=== PATIENT | female | born 1955 | race Caucasian/White ===

== ENCOUNTER → 2017-06-19 14:52 | Outpatient (CLI) | payer BC, SELFPAY ==
[2017-06-19 16:06] LABS: Anion Gap 8 (5-15); BUN 13 mg/dL (7-18); BUN/Creat Ratio 14.5 RATIO (10-20); Calcium,Total 8.9 mg/dL (8.5-10.1); Chloride 106 mmol/L (98-107); Cholesterol 247 mg/dL (200); EST Glomerular Filtration Rate 67 mL/min (>60); Est Glom Filt Rate - Afr Amer 82 mL/min (>60); Glucose 95 mg/dL (74-106); High Density Lipoprotein 38 mg/dL; Potassium 3.7 mmol/L (3.5-5.1); Sodium Level 140 mmol/L (136-145); Thyroid Stim Hormone (TSH) 1.58 uIU/mL (0.358-3.74); Triglycerides 377 mg/dL; Very Low Density Lipoprotein 75 mg/dL (5-40)
== END ==
PROVIDERS: Family Provider Family Medicine; PCP Family Medicine; Visit Provider Family Medicine
DX: I10 Essential (primary) hypertension (principal)
CPT/HCPCS: 36415; 80048; 80061; 84443

== ENCOUNTER → 2017-07-16 12:57 | Outpatient (CLI) | payer BC, SELFPAY ==
[2017-07-17 14:36] LABS: HPV Reflexed? NOT INDICATED
== END ==
PROVIDERS: Family Provider Family Medicine; PCP Family Medicine; Visit Provider Family Medicine
DX: Z01.419 Encounter for gynecological examination (general) (routine) without abnormal findings (principal)
CPT/HCPCS: 88175; G0145

== ENCOUNTER → 2017-07-30 07:19 | Outpatient (CLI) | payer BC, SELFPAY ==
--- NOTE | 2017-07-30 07:19 | DT_ITS ---
This patient was seen during an EMR downtime July 29, 2017 - August 05, 2017. This patient may have a combination of paper and electronic documentation or all paper documentation. All documentation is viewable within the e-chart portion of [facility] for each patient visit.
--- NOTE | 2017-07-30 07:20 | CT_ITS ---
STUDY: CT SOFT TISSUE NECK WITH CONTRAST REASON FOR EXAM: Female, 62 years old. Left lateral neck mass. RADIATION DOSAGE (If Supplied By Facility): CTDIvol = ( 22.34 ) mGy, DLP = ( 674.95 ) mGycm TECHNIQUE: The patient was scanned in a multi-detector CT scanner. High resolution transaxial imaging was performed following intravenous administration of 100 ml of Isovue 300 contrast material. Sagittal and coronal images were reconstructed. Individualized dose optimization techniques were used for this CT. COMPARISON: None. FINDINGS: There is 3.5 x 2.4 cm fat density mass superficial to the left submandibular gland in the area marked as the region of interest by the patient. Normal bilateral parotid glands. Normal bilateral associate team physician spaces. Normal bilateral parapharyngeal spaces. Normal bilateral carotid spaces. Normal bilateral sublingual and submandibular glands . Normal visualized nasopharynx. Normal retropharyngeal space. Normal perivertebral space. Normal visualized bilateral faucial tonsils. The visualized tongue, tongue base and oropharynx are normal. The visualized cervical lymph nodes (levels I-) are within normal size limits, and maintain normal morphology. There is no demonstrated cystic mass lesion. There is no abnormal contrast enhancement. Normal epiglottis, bilateral vallecula and hypopharynx. The pre-epiglottic and paraglottic adipose spaces are normal. Normal visualized bilateral piriform sinuses, aryepiglottic folds, vocal cords, and arytenoid-cricoid articulations. Normal subglottic trachea. Normal bilateral lobes of the thyroid gland. Normal visualized pulmonary apices. Normal visualized paranasal sinuses. Mild degenerative changes of the cervical spine. CT/Soft Tissue Neck WITH Contrast IMPRESSION: Fat density mass corresponding to the palpable abnormality consistent with lipoma. Electronically Signed: Zay Hu MD at 11:14 EDT , Service support ,
== END ==
PROVIDERS: Family Provider Family Medicine; PCP Family Medicine; Visit Provider Family Medicine
DX: R22.1 Localized swelling, mass and lump, neck (principal)
CPT/HCPCS: 70491; Q9967

== ENCOUNTER → 2017-08-05 16:11 | Outpatient (CLI) | payer BC, SELFPAY ==
--- NOTE | 2017-08-05 16:11 | DT_ITS ---
This patient was seen during an EMR downtime July 29, 2017 - August 05, 2017. This patient may have a combination of paper and electronic documentation or all paper documentation. All documentation is viewable within the e-chart portion of [employer] [facility] for each patient visit.
--- NOTE | 2017-08-05 16:14 | BI_ITS ---
MAMMOGRAPHY - BILATERAL SCREENING REASON FOR EXAM: Female, 62 years old. Routine annual screening examination. PERTINENT HISTORY: Non-contributory. TECHNIQUE: Digital bilateral breast christiane (3D mammographic acquisition) in the CC and MLO projections. 2-D mediolateral oblique (MLO) and craniocaudad (CC) views of both breasts were obtained. CAD: Full Field Digital Mammography with Computer Added Detection was performed. COMPARISON: Comparison is made with prior study dated October 08, 2011 and October 05, 2010. FINDINGS: Breast Composition: There are scattered areas of fibroglandular density. There are no dominant masses or suspicious calcifications. Stable appearance of the benign appearing bilateral axillary lymph nodes. No other significant abnormalities are identified. There has been no significant change since the prior study. BI/SCREENING MAMM (CAD), BILAT IMPRESSION: Stable bilateral screening mammogram. Yearly follow-up mammogram recommended. (A) ASSESSMENT CATEGORY: BIRADS Category 2: Benign. A letter regarding these results will be sent to the patient by the facility within 30 days. Approximately 10% of breast cancers are not detected by mammography. A normal mammogram should not delay biopsy of a clinically suspicious abnormality. [id number] Electronically Signed: Oneil Red MD at 13:54 EDT Tel [phone], Service support ,
== END ==
PROVIDERS: Family Provider Family Medicine; PCP Family Medicine; Visit Provider Family Medicine
DX: Z12.31 Encounter for screening mammogram for malignant neoplasm of breast (principal)
CPT/HCPCS: 77063; 77067

== ENCOUNTER → 2017-08-13 11:14 | Outpatient (CLI) | payer BC, SELFPAY ==
[2017-08-13 13:15] LABS: AST(SGOT) 11 U/L (15-37); Alanine Aminotransfer ALT/SGPT 24 U/L (13-56); Cholesterol 120 mg/dL (200); High Density Lipoprotein 34 mg/dL; Triglycerides 284 mg/dL; Very Low Density Lipoprotein 57 mg/dL (5-40)
== END ==
PROVIDERS: Family Provider Family Medicine; PCP Family Medicine; Visit Provider Family Medicine
DX: E78.5 Hyperlipidemia, unspecified (principal)
CPT/HCPCS: 36415; 80061; 84450; 84460

== ENCOUNTER → 2017-08-19 16:24 | Outpatient (CLI) | payer BC, SELFPAY ==
--- NOTE | 2017-08-19 12:05 | COLBX_PTH ---
PATIENT: GISEL HOLLIDAY LOC: [facility] U#:[id number] AGE/SX: 69/F ROOM: RE08/19/[address]: Dr. Joselito Retana MD : 1955 BED: DIS: SPEC #: [id number] RECD: 08/19/17 15:31 STATUS: NAHID CHERIE #: [id number] SAUMYA: 08/19/17 12:[address]: Joselito Retana DEPT: SURGICAL PATHOLOGY RECD BY: Jose Carson ENTERED: 08/20/17 10:49 SP TYPE: COLON BX OTHR DR: Dr. Phylicia Kaba MD [facility] Tissues: A - Right colon B - Sigmoid colon biopsy Procedures: Surgery Specimen Level IV HEADER OPERATION: Colonoscopy with biopsy PRE-OP DIAGNOSIS: Screening colonoscopy TISSUE SUBMITTED: A. Polyp biopsy, right colon, rule out adenoma, B. Polyp biopsy, distal sigmoid, rule out adenoma MICROSCOPIC DIAGNOSIS A. Polyp right colon, biopsy: Fragments of tubular adenoma. B. Distal sigmoid polyp, biopsy: Fragments of hyperplastic polyp. SJ:fredy 08/21/17 MICROSCOPIC DESCRIPTION Slides are reviewed. GROSS DESCRIPTION A. Received in fixative is one container labeled with the patient's name and designated right colon polyp biopsy. The specimen consists of multiple fragments of tissue measuring in aggregate 0.6 x 0.2 x 0.2. The specimen is totally submitted in one cassette. B. Received in fixative is one container labeled with the patient's name and designated distal sigmoid polyp biopsy. The specimen consists of two fragments of tissue measuring in aggregate 0.5 x 0.3 x 0.3. The specimen is totally submitted in one cassette. RY:fredy 08/19/17 TC:1 CPT:76023 x2
== END ==
PROVIDERS: Family Provider Family Medicine; PCP Family Medicine; Visit Provider Internal Medicine Gastroenterology
DX: Z12.11 Encounter for screening for malignant neoplasm of colon (principal)
CPT/HCPCS: 88305

== ENCOUNTER → 2018-09-10 | Outpatient (CLI) | payer BC, SELFPAY ==
--- NOTE | 2018-09-10 12:06 | BI_ITS ---
MAMMOGRAPHY - BILATERAL SCREENING REASON FOR EXAM: Female, 63 years old. Routine annual screening examination. PERTINENT HISTORY: Non-contributory. TECHNIQUE: Digital bilateral breast connie (3D mammographic acquisition) in the CC and MLO projections. 2-D mediolateral oblique (MLO) and craniocaudad (CC) views of both breasts were obtained. CAD: Full Field Digital Mammography with Computer Added Detection was performed. COMPARISON: Comparison is made with prior study dated August 05, 2017 and October 08, 2011. FINDINGS: Breast Composition: There are scattered areas of fibroglandular density. There are no dominant masses or suspicious calcifications. No other significant abnormalities are identified. There has been no significant change since the prior study. BI/SCREEN MAMM (CAD) W/CONNIE BILAT IMPRESSION: Stable bilateral screening mammogram. Yearly follow-up mammogram recommended. (A) ASSESSMENT CATEGORY: BIRADS Category 1: Negative. A letter regarding these results will be sent to the patient by the facility within 30 days. Approximately 10% of breast cancers are not detected by mammography. A normal mammogram should not delay biopsy of a clinically suspicious abnormality. [id number] Electronically Signed: Oneil Red, at 14:34 EDT , Service support ,
== END | disposition home or self-care (01) ==
PROVIDERS: Family Provider Family Medicine; PCP Family Medicine; Referring Provider Family Medicine; Visit Provider Family Medicine
DX: Z12.31 Encounter for screening mammogram for malignant neoplasm of breast (principal)
CPT/HCPCS: 77063; 77067

== ENCOUNTER → 2018-10-17 | Outpatient (CLI) | payer BC, SELFPAY ==
[2018-09-26 08:43] VITALS: BMI 40.1
--- NOTE | 2018-10-17 14:06 | CT_ITS ---
STUDY: CT SOFT TISSUE NECK WITH CONTRAST REASON FOR EXAM: Female, 63 years old. Left neck soft tissue mass x one year. RADIATION DOSAGE (If Supplied By Facility): CTDIvol = ( 19.48 ) mGy, DLP = ( 603.23 ) mGycm TECHNIQUE: The patient was scanned in a multi-detector CT scanner. High resolution transaxial imaging was performed following intravenous administration of 75ML IV Isovue 370. Sagittal and coronal images were reconstructed. Individualized dose optimization techniques were used for this CT. COMPARISON: None. FINDINGS: Normal bilateral parotid glands. Normal bilateral forensic locksmith spaces. Normal bilateral parapharyngeal spaces. Normal bilateral carotid spaces. Normal bilateral sublingual and submandibular glands and spaces. Lateral to the left submandibular gland and just below the left parotid gland is a well-defined 3.7 x 2.55 x 3.8 cm fatty area consistent with a lipoma. Normal visualized nasopharynx. Normal retropharyngeal space. Normal perivertebral space. Normal visualized bilateral faucial tonsils. The visualized tongue, tongue base and oropharynx are normal. The visualized cervical lymph nodes (levels I-) are within normal size limits, and maintain normal morphology. There is no demonstrated solid or cystic mass lesion. There is no abnormal contrast enhancement. Normal epiglottis, bilateral vallecula and hypopharynx. The pre-epiglottic and paraglottic adipose spaces are normal. Normal visualized bilateral piriform sinuses, aryepiglottic folds, vocal cords, and arytenoid-cricoid articulations. Normal subglottic trachea. Normal bilateral lobes of the thyroid gland. Normal visualized pulmonary apices. Normal visualized paranasal sinuses. There are degenerative changes of the spine at C5-6 and C6-7. CT/Soft Tissue Neck WITH Contrast IMPRESSION: 1. 3.8 cm lipoma in the left neck lateral to the submandibular gland and just below the left parotid. 2. Degenerative changes of the spine at C5-6 and C6-7. Electronically Signed: Chalino Leroy MD at 15:22 EDT , Service support ,
[2018-10-17 14:46] LABS: CREATININE FINGERSTICK 0.9 mg/dL (0.55-1.02); EGFR FINGERSTICK > 60.0000 mL/min (>60)
== END | disposition home or self-care (01) ==
PROVIDERS: Family Provider Family Medicine; PCP Family Medicine; Referring Provider Surgery; Visit Provider Surgery
DX: R22.1 Localized swelling, mass and lump, neck (principal)
CPT/HCPCS: 70491; Q9967

== ENCOUNTER → 2019-01-26 14:56 | Outpatient (CLI) | payer BC, SELFPAY ==
[2018-09-26 08:43] VITALS: BMI 40.1
[2019-01-26 18:20] LABS: Anion Gap 7 (5-15); BUN 15 mg/dL (7-18); BUN/Creat Ratio 19.5 RATIO (10-20); Chloride 105 mmol/L (98-107); Creatinine, Serum 0.77 mg/dL (0.55-1.02); EST Glomerular Filtration Rate 80 mL/min (>60); Est Glom Filt Rate - Afr Amer 97 mL/min (>60); Glucose 97 mg/dL (74-106); Potassium 3.9 mmol/L (3.5-5.1); Sodium Level 138 mmol/L (136-145)
== END ==
PROVIDERS: Family Provider Family Medicine; PCP Family Medicine; Referring Provider Family Medicine; Visit Provider Family Medicine
DX: I10 Essential (primary) hypertension (principal)
CPT/HCPCS: 36415; 80048

== ENCOUNTER 2019-01-27 05:56 | Day surgery (SDC) | payer BC, SELFPAY ==
[2018-09-26 08:43] VITALS: BMI 40.1
--- NOTE | 2019-01-26 18:22 | HP.PCM_ITS ---
History and Physical Date of Admission: 01/27/19 HISTORY OF PRESENT ILLNESS 63 year old woman presents with an enlarging soft tissue mass left lateral neck. She denies any pain. She denies any fever. She denies any trauma. She noticed it about a year ago and a CT was done in 08/12 which showed a fat density mass consistent with lipoma. It measured at 3.5 cm. She states it has enlarged since then. Repeat CT scan done 10/17/18 showed 1. 3.8 cm lipoma in the left neck lateral to the submandibular gland and just below the left parotid. She presents at this time for further evaluation and treatment. PAST MEDICAL HISTORY Bone fracture (Acute) GERD (gastroesophageal reflux disease) (Acute) High cholesterol (Acute) Seasonal allergies (Acute) UTI (urinary tract infection) (Acute) High blood pressure (Chronic) PAST SURGICAL HISTORY None ALLERGIES ciprofloxacin [From Cipro] Allergy (Intermediate, Verified 09/26/18 08:44) Hives MEDICATIONS Lactobac 51-Bifidobac 3-L.lactis-S.thermophilus 4 billion cell capsule cap PO cap 08/19/18 [History Confirmed 08/19/18] aspirin 81 mg chewable tablet 81 mg PO DAILY 08/19/18 [History Confirmed 08/19/18] atorvastatin 20 mg tablet 20 mg PO DAILY 08/19/18 [History Confirmed 08/19/18] esomeprazole magnesium 20 mg capsule,delayed release 20 mg PO DAILY 08/19/18 [History Confirmed 08/19/18] flaxseed oil 450 ml MISCELLANEOUS ONCE ml 08/19/18 [History] loratadine 10 mg tablet 10 mg PO DAILY 08/19/18 [History Confirmed 08/19/18] metoprolol succinate ER 50 mg capsule sprinkle, ext. release 24 hr 50 mg PO DAILY 08/19/18 [History Confirmed 08/19/18] potassium 99 mg tablet 99 mg PO DAILY 08/19/18 [History Confirmed 08/19/18] triamcinolone acetonide 55 mcg nasal spray aerosol 2 spray INTRANASAL DAILY 08/19/18 [History Confirmed 08/19/18] FAMILY HISTORY Other High cholesterol Hypertension SOCIAL HISTORY Smoking Status: Never smoker alcohol intake: current substance use type: does not use REVIEW OF SYSTEMS General - Denies fever, fatigue, and weight loss. Eyes - Denies cataracts and glaucoma. ENT - Denies nasal congestion and sore throat. Endocrine - Denies excessive thirst and urination. Skin - Denies skin cancer. Has enlarging soft tissue mass left lateral neck consistent with lipoma. Musculoskeletal - Denies joint pain, joint stiffness, weakness of muscles and joints, back pain, and arthritis. Neuro - Has headaches. Cardiovascular - Denies chest pain, fatigue, and shortness of breath with exertion. Psych - Denies anxiety and depression. Respiratory - Denies chronic cough and shortness of breath. Gastrointestinal - Denies nausea, vomiting, diarrhea, and constipation. Hematologic - Denies abnormal bruising and bleeding. Genitourinary - Denies hematuria. Has urinary frequency. PHYSICAL EXAMINATION General - Alert and Oriented. HEENT - PERRL. EOMI. Throat is clear. Patient can smile symmetrically. She can close her eyes symmetrically. She can blow symmetrically. She can elevate her eyebrows symmetrically. No suspicious lesions noted. Neck - Supple and nontender. No cervical adenopathy. In the left lateral neck is a soft tissue mass. It is mobile. It does not extend onto the cheek. It is inferior to the earlobe. Mass measures 6 cm. No skin dimpling. No skin retraction. No evidence of infection. No other suspicious lesions noted. Lungs - Clear to auscultation. Heart - Regular rate and rhythm. Abdomen - Soft and nondistended. Extremities - FROM. No axillary adenopathy. Radial pulses are palpable. No suspicious lesions noted. Neuro - CN II-XII grossly intact. Psych - Normal mood and affect. ASSESSMENT 6 cm soft tissue mass left lateral neck. PLAN CT from 08/12 was reviewed. It showed a fat density mass consistent with lipoma. It doesn't appear to be involved with the parotid gland. It is located superficial to the submandibular gland. Recommend excision of this soft tissue mass left lateral neck. Since the mass is gotten bigger since then and it has been over a year, the CT was repeated on 10/17/18 and showed 1. 3.8 cm lipoma in the left neck lateral to the submandibular gland and just below the left parotid. Discussed with the patient that even though the CT does not show involvement of the parotid gland, it is still located close to it. Based on the previous CT scan findings, do not need ENT evaluation at this time. However at the time of surgery, if there happens to be involvement of the parotid gland, then superficial parotidectomy would be needed. Would then need evaluation by ENT for a parotidectomy which would be done separately. Patient voices understanding. Surgery will be done on an outpatient basis under general anesthesia. Would send tissue to Pathology for analysis to rule out carcinoma. Depending on the size of the cavity after excision, a drain may be necessary postop for 7-10 days. Would be maintained on antibiotics until the drain is removed. Will schedule the surgery after the CT is done. Patient was informed of the risks and complications of the procedure including alternatives to surgery. These were discussed with the patient personally. Patient voices understanding and wishes to proceed. Some of the risks and complications were included in a form from the [employer].
[2019-01-27 06:31] VITALS: BP 153/88; PULSE 92; RESP 16; TEMP 36.8; O2SAT 97; BMI 40.6
[2019-01-27] MEDS: Lactated Ringers 1,000 ML 100 ML IV (06:52)
--- NOTE | 2019-01-27 07:30 | MASS_PTH ---
PATIENT: GISEL HOLLIDAY LOC: [facility] [place] U#:[id number] AGE/SX: 63/F ROOM: RE01/27/[address]: Dr. Dionicio Brown MD : 1955 BED: DIS: 01/27/2019 SPEC #: [id number] RECD: 01/27/19 11:53 STATUS: NAHID REKimberlee #: [id number] SAUMYA: 01/27/19 07:[address]: Dionicio Brown DEPT: SURGICAL PATHOLOGY RECD BY: Jose Carson ENTERED: 01/27/19 13:11 SP TYPE: Mass OTHR DR: Dr. Phylicia Kaba MD Tissues: Neck, NOS Procedures: Surgery Specimen Level III HEADER OPERATION: Excision soft tissue mass lateral neck PRE-OP DIAGNOSIS: 6 cm soft tissue mass left lateral neck TISSUE SUBMITTED: Soft tissue mass left lateral neck MICROSCOPIC DIAGNOSIS Soft tissue mass, left lateral neck, excision: Mature adipose tissue consistent with lipoma. AM:osman 01/28/19 MICROSCOPIC DESCRIPTION Slides are reviewed. GROSS DESCRIPTION Received in fixative is one container labeled with the patient's name and designated soft tissue mass left lateral neck. The specimen consists of multiple irregular fragments of yellow fatty tissue that in aggregate measure 7 x 5 x 2 cm. Sections reveal homogenous yellow cut surfaces without areas of cyst formation, necrosis or myxoid change. Pediatric Psychologist sections are submitted in two cassettes. / SJ:osman 01/27/19 TC:1 CPT: 41829
[2019-01-27] MEDS: Mupirocin Ointment 22gm Tube 1 APPLIC (08:05)
--- NOTE | 2019-01-27 08:36 | PCM.OPRPT ---
Report of Operation Date of Procedure: 01/27/19 Pre-Operative Diagnosis: 6 cm soft tissue mass left lateral neck. Post-Operative Diagnosis: 6 cm submuscular soft tissue mass lipoma left lateral neck. Surgery/Procedure Performed:: Excision 6 cm submuscular soft tissue mass lipoma left lateral neck with 6 cm complex closure. Description of Surgical Findings:: 63 year old woman presents with an enlarging soft tissue mass left lateral neck. She denies any pain. She denies any fever. She denies any trauma. She noticed it about a year ago and a CT was done in 08/12 which showed a fat density mass consistent with lipoma. It measured at 3.5 cm. She states it has enlarged since then. Repeat CT scan done 10/17/18 showed 1. 3.8 cm lipoma in the left neck lateral to the submandibular gland and just below the left parotid. Patient was informed of the risks and complications of the procedure including alternatives to surgery. These were discussed with the patient personally. Patient voices understanding and wishes to proceed. Some of the risks and complications were included in a form from the [employer]. I used Pamela absorbable hemostat. Reference Number - [id number]. Lot Number - [id number]. Expiration - October 23, 2023. build engineer: None Type of Anesthesia:: General Specimen's removed: Submuscular soft tissue mass left lateral neck to Pathology. Drains: None. Estimated Blood Loss (mL): 20 ml. Description of Procedure: Patient was taken to OR in supine position and was placed under general anesthesia. The left neck was prepped and draped in the usual fashion. SCD's were placed for DVT prophylaxis. Perioperative antibiotics were given intravenously. I mega a line over the mass on the left lateral neck. Using xylocaine with epinephrine, the marking was infiltrated. After waiting 5 minutes for the anesthetic to take effect, an incision was made into the subcutaneous tissue. The platysma muscle was seen. The soft tissue mass was located beneath the platysma muscle in a submuscular location. The muscle was off the mass. The mass was clinically consistent with a lipoma which is what the CT stated. I dissected the mass close to the submandibular gland anteriorly and the tail of the parotid gland posteriorly. The mass was well encapsulated without adherence to these structures and without adherence to the mandible. The soft tissue mass was sent to Pathology for analysis to rule out carcinoma. The wound was irrigated with saline. Hemostasis was obtained with electrocautery. I then sprayed Pamela absorbable hemostat into the wound to minimize seroma formation. The wound was then closed in a multiple layered complex closure with 4-0 Monocryl figure of eight interrupted sutures for the platysma muscle. The deep dermis and subcutaneous tissue was approximated with 4-0 Monocryl interrupted sutures. The skin was approximated with 4-0 Prolene simple interrupted sutures. Antibiotic ointment was applied to the incision followed by a compression gauze dressing. The length of the complex closure repair was 6 cm. Patient tolerated the procedure well and was sent to PACU in satisfactory condition. Patient will be sent home on antibiotics and pain medication. Patient will followup in a week for a wound check and for discussion of the pathology report and for removal of the sutures. Grafts/Implants Used: None. - Complications None. - Admit VTE Documentation VTE Present on Admission: No VTE Mechan Device Prophylaxis: SCD's VTE Pharm Prophylaxis ordered?: No Code Visit Surgery Charges CPT - 59201 ICD-10 - R22.1, D17.0 37088 R22.1, D17.0
[2019-01-27 08:44] VITALS: BP 144/81; BP 153/88; PULSE 82; RESP 16; TEMP 36.8; O2SAT 96
--- NOTE | 2019-01-27 08:51 | PCM.DC ---
You will use the following diet at home:: No restrictions Discharge Activity: May not drive while taking narcotic pain medications., May Shower - in two days., - - keep head elevated. no heavy lifting. May shower in (days): 2 May resume sexual activity in: 10-14 days Ice area for (Minutes): 5 - as needed for swelling. Weight Bearing Status: Weight bearing as tolerated Lifting Restrictions: 10 lbs. Keep extremity elevated above heart level: - - elevate head. Call your doctor if your incision/area has: Continuous Slow Oozing, Sudden Increased Bleeding, Increased Pain/ Swelling, Increased Redness, Foul Smelling Discharge, Swelling at the incision site Call your doctor if you observe: Fever of 101 or Higher, Coldness, Increased Pain, Shortness of breath, Chest pain, Calf discomfort, Uncontrolled pain Suture Line Care: - - apply antibiotic ointment to suture line daily after operative dressing removed in two days. Change Dressing in (Days):: 2 - may remove dressing in two days when showering. Cleanse incision/area with: - - may get incision wet in the shower in two days. Allergies/Adverse Reactions: Allergies ciprofloxacin [From Cipro] Allergy (Intermediate, Verified 01/21/19 13:04) Hives Medications to take at Discharge Lactobac 51-Bifidobac 3-L.lactis-S.thermophilus 4 billion cell capsule 1 cap PO DAILY cap 08/19/18 atorvastatin 20 mg tablet 20 mg PO DAILY 08/19/18 esomeprazole magnesium 20 mg capsule,delayed release 20 mg PO DAILY 08/19/18 flaxseed oil 450 ml MISCELLANEOUS ONCE ml 08/19/18 loratadine 10 mg tablet 10 mg PO DAILY 08/19/18 metoprolol succinate ER 50 mg capsule sprinkle, ext. release 24 hr 50 mg PO DAILY 08/19/18 potassium 99 mg tablet 99 mg PO DAILY 08/19/18 triamcinolone acetonide 55 mcg nasal spray aerosol 2 spray INTRANASAL DAILY 08/19/18 Hydrochlorothiazide 12.5 mg PO DAILY 01/21/19 Clindamycin HCl [Cleocin] 300 mg PO TID #12 cap 01/27/19 Diazepam [Valium] 5 mg PO BID PRN PRN #10 tablet 01/27/19 Lactobacillus Acidophilus/Fos [Acidophilus Probiotic Tablet] 1 ea PO BID #10 tab 01/27/19 Oxycodone HCl/Acetaminophen [Percocet 5/325] 1 tablet PO Q6H PRN PRN 5 Days #20 tablet 01/27/19 The following prescriptions were given: Lactobacillus Acidophilus/Fos [Acidophilus Probiotic Tablet] 1 ea PO BID #10 tab Transmission Status: Pending to [id number] Clindamycin HCl [Cleocin] 300 mg PO TID #12 cap Transmission Status: Pending to [facility] Oxycodone HCl/Acetaminophen [Percocet 5/325] 1 tablet PO Q6H PRN PRN 5 Days #20 tablet PRN Reason: Pain Score 4-5/10 Transmission Status: Received by [id number] Diazepam [Valium] 5 mg PO BID PRN PRN #10 tablet PRN Reason: Spasms Transmission Status: Sent to [id number] Primary Care Physician: Phylicia Kaba MD [Primary Care Provider] - Test Results: Test results from this visit will be discussed in further detail at your follow-up appointment, if applicable. Please Follow Up With: Dionicio Brown MD When: one week. call [phone] for appt. Proposed Discharge Date: 01/27/19
[2019-01-27 08:59] VITALS: BP 137/79; BP 153/88; PULSE 82; RESP 14; O2SAT 99
[2019-01-27 09:08] VITALS: BP 139/67; BP 153/88; PULSE 87; RESP 16; TEMP 36.2; O2SAT 98
[2019-01-27 09:58] VITALS: BP 150/82; BP 153/88; PULSE 64; RESP 16; TEMP 36.3; O2SAT 98
== END 2019-01-27 10:07 | disposition home or self-care (01) ==
LOC: SDC 06:00 → AC 06:00
PROVIDERS: Family Provider Family Medicine; PCP Family Medicine; Referring Provider Surgery; Visit Provider Surgery
PROC: (CPT 13132; principal; 2019-01-27 07:15)
DX: R22.1 Localized swelling, mass and lump, neck (principal); K21.9 Gastro-esophageal reflux disease without esophagitis; E78.00 Pure hypercholesterolemia, unspecified; I10 Essential (primary) hypertension; Z87.440 Personal history of urinary (tract) infections; Z79.82 Long term (current) use of aspirin; Z79.899 Other long term (current) drug therapy
CPT/HCPCS: 00300; 13132; 21554; 88304; 88305; J7120

== ENCOUNTER → 2019-07-27 | Outpatient (CLI) | payer BC, SELFPAY ==
[2019-02-04 14:18] VITALS: BMI 40.6
[2019-07-27 17:56] LABS: AST(SGOT) 23 U/L (15-37); Alanine Aminotransfer ALT/SGPT 40 U/L (13-56); Anion Gap 8 (5-15); BUN 13 mg/dL (7-18); BUN/Creat Ratio 16.4 RATIO (10-20); Calcium,Total 8.8 mg/dL (8.5-10.1); Chloride 104 mmol/L (98-107); Cholesterol 170 mg/dL (200); Creatinine, Serum 0.79 mg/dL (0.55-1.02); EST Glomerular Filtration Rate 77 mL/min (>60); Est Glom Filt Rate - Afr Amer 94 mL/min (>60); Glucose 101 mg/dL (74-106); High Density Lipoprotein 37 mg/dL; Potassium 3.8 mmol/L (3.5-5.1); Sodium Level 138 mmol/L (136-145); Triglycerides 330 mg/dL; Very Low Density Lipoprotein 66 mg/dL (5-40)
== END | disposition home or self-care (01) ==
LOC: MFPLAB 14:02
PROVIDERS: PCP Family Medicine; Referring Provider Family Medicine; Visit Provider Family Medicine
DX: I10 Essential (primary) hypertension (principal); E78.5 Hyperlipidemia, unspecified
CPT/HCPCS: 36415; 80048; 80061; 84450; 84460

== ENCOUNTER → 2020-01-26 14:42 | Outpatient (CLI) | payer BC, SELFPAY ==
[2019-02-04 14:18] VITALS: BMI 40.6
[2020-01-26 18:46] LABS: AST(SGOT) 21 U/L (15-37); Alanine Aminotransfer ALT/SGPT 42 U/L (13-56); Anion Gap 7 (5-15); BUN 12 mg/dL (7-18); BUN/Creat Ratio 17.2 RATIO (10-20); Calcium,Total 8.8 mg/dL (8.5-10.1); Chloride 105 mmol/L (98-107); Cholesterol 137 mg/dL (200); EST Glomerular Filtration Rate 90 mL/min (>60); Est Glom Filt Rate - Afr Amer 108 mL/min (>60); Glucose 122 mg/dL (74-106); High Density Lipoprotein 38 mg/dL; Potassium 3.4 mmol/L (3.5-5.1); Sodium Level 138 mmol/L (136-145); Triglycerides 319 mg/dL; Very Low Density Lipoprotein 64 mg/dL (5-40)
== END ==
PROVIDERS: PCP Family Medicine; Referring Provider Family Medicine; Visit Provider Family Medicine
DX: I10 Essential (primary) hypertension (principal); E78.5 Hyperlipidemia, unspecified
CPT/HCPCS: 36415; 80048; 80061; 84450; 84460

== ENCOUNTER → 2020-03-01 13:09 | Outpatient (CLI) | payer BC, SELFPAY ==
[2019-02-04 14:18] VITALS: BMI 40.6
--- NOTE | 2020-03-01 13:11 | BI_ITS ---
MAMMOGRAPHY - BILATERAL SCREENING REASON FOR EXAM: Female, 64 years old. Routine annual screening examination. PERTINENT HISTORY: Non-contributory. TECHNIQUE: Digital bilateral breast connie (3D mammographic acquisition) in the CC and MLO projections. 2-D mediolateral oblique (MLO) and craniocaudad (CC) views of both breasts were obtained. CAD: Full Field Digital Mammography with Computer Added Detection was performed. COMPARISON: Comparison is made with prior examination dated 09/10/2018 and 08/05/2017. FINDINGS: Breast Composition: There are scattered areas of fibroglandular density. There are no dominant masses or suspicious calcifications. Stable benign-appearing bilateral axillary lymph nodes. No other significant abnormalities are identified. There has been no significant change since the prior study. BI/SCREEN MAMM (CAD) W/CONNIE BILAT IMPRESSION: Stable bilateral screening mammogram. Yearly follow-up mammogram recommended. (A) ASSESSMENT CATEGORY: BIRADS Category 2: Benign. A letter regarding these results will be sent to the patient by the facility within 30 days. Approximately 10% of breast cancers are not detected by mammography. A normal mammogram should not delay biopsy of a clinically suspicious abnormality. [id number] Electronically Signed: Oneil Red, at 14:28 EST , Service support ,
--- NOTE | 2020-03-01 13:20 | BD_ITS ---
STUDY: DUAL ENERGY X-RAY ABSORPTIOMETRY / DXA REASON FOR EXAM: Female, 64 years old. 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 COMPARISON: Comparison is made with prior study dated 02/20/2007. FINDINGS: Lumbar Spine (L1-L4): g/cm2 (1.439) / T-score (2.2) / Z-score (3.8) Findings are suggestive of normal bone density with a low fracture risk. Left Femur Total: g/cm2 (1.058) / T-score (0.4) / Z-score (1.6) Left Femoral Neck: g/cm2 (0.923) / T-score (-0.8) / Z-score (0.7) Right Femur Total: g/cm2 (1.053) / T-score (0.4) / Z-score (1.6) Right Femoral Neck: g/cm2 (0.976) / T-score (-0.4) / Z-score (1.0) The T-Scores on the most recent prior examination were: Lumbar Spine (L1-L4): There has been improvement of bone density since the previous examination. Left Femur Total: which represents an improvement of 13.4%. BD/Dexa Bone Density Study IMPRESSION: The patient is considered normal as outlined below according to World [employer] Organization (WHO) criteria with a low fracture risk. There has been improvement of bone density since the previous examination. Reference Information: The T-score is the number of standard deviations above or below the standard which is normal for young adults at their peak bone mineral density. The World Health Organization (WHO) interprets the T-scores as follows: Above -1 Normal bone density Between -1 and -2.5 Osteopenia Equal to / or below -2.5 Osteoporosis As a practical clinical guideline, osteopenia may be graded as follows: Mild -1 through -1.5 Moderate -1.6 through -2.0 Severe -2.1 through -2.4 The Z-score is the number of standard deviations above or below age-matched controls. A Z-score of less than -1.5 would be considered abnormal. References: 1. NIH Osteoporosis and Related Bone Diseases www osteo.org 2. International Society for Clinical Densitometry www iscd.org 3. National Osteoporosis Foundation www nof.org Electronically Signed: Oneil Red, at 15:13 EST , Service support ,
== END ==
PROVIDERS: PCP Family Medicine; Referring Provider Family Medicine; Visit Provider Family Medicine
DX: N95.9 Unspecified menopausal and perimenopausal disorder (principal); Z12.31 Encounter for screening mammogram for malignant neoplasm of breast
CPT/HCPCS: 77063; 77067; 77080

== ENCOUNTER → 2020-07-27 14:21 | Outpatient (CLI) | payer BC, SELFPAY ==
[2019-02-04 14:18] VITALS: BMI 40.6
[2020-07-27 17:55] LABS: Anion Gap 7 (5-15); BUN 15 mg/dL (7-18); BUN/Creat Ratio 21.4 RATIO (10-20); Calcium,Total 9.3 mg/dL (8.5-10.1); Chloride 104 mmol/L (98-107); EST Glomerular Filtration Rate 89 mL/min (>60); Est Glom Filt Rate - Afr Amer 107 mL/min (>60); Glucose 103 mg/dL (74-106); Potassium 3.8 mmol/L (3.5-5.1); Sodium Level 138 mmol/L (136-145)
== END ==
PROVIDERS: PCP Family Medicine; Referring Provider Family Medicine; Visit Provider Family Medicine
DX: I10 Essential (primary) hypertension (principal)
CPT/HCPCS: 36415; 80048

== ENCOUNTER → 2020-11-14 | Outpatient (CLI) | payer BC, SELFPAY | END | disposition home or self-care (01) | LOC: LABSPEC 13:56 | PROVIDERS: PCP Family Medicine; Visit Provider Family Medicine | DX: L03.90 Cellulitis, unspecified (principal); L02.91 Cutaneous abscess, unspecified | CPT/HCPCS: 87070; 87075; 87077; 87186; 87205 ==

== ENCOUNTER → 2021-02-06 14:47 | Outpatient (CLI) | payer BC, SELFPAY ==
[2021-02-06 18:27] LABS: AST(SGOT) 22 U/L (15-37); Alanine Aminotransfer ALT/SGPT 38 U/L (13-56); Anion Gap 8 (5-15); BUN 18 mg/dL (7-18); BUN/Creat Ratio 28.2 RATIO (10-20); Calcium,Total 9.2 mg/dL (8.5-10.1); Chloride 104 mmol/L (98-107); Cholesterol 159 mg/dL (200); Creatinine, Serum 0.64 mg/dL (0.55-1.02); EST Glomerular Filtration Rate 99 mL/min (>60); Est Glom Filt Rate - Afr Amer 119 mL/min (>60); Glucose 94 mg/dL (74-106); High Density Lipoprotein 46 mg/dL; Potassium 3.8 mmol/L (3.5-5.1); Sodium Level 139 mmol/L (136-145); Triglycerides 267 mg/dL; Very Low Density Lipoprotein 53 mg/dL (5-40)
== END ==
PROVIDERS: PCP Family Medicine; Visit Provider Family Medicine
DX: I10 Essential (primary) hypertension (principal); E78.5 Hyperlipidemia, unspecified
CPT/HCPCS: 36415; 80048; 80061; 84450; 84460

== ENCOUNTER → 2022-03-27 | Outpatient (CLI) | payer BC, SELFPAY ==
--- NOTE | 2022-03-27 13:10 | BI_ITS ---
MAMMOGRAPHY - BILATERAL SCREENING REASON FOR EXAM: Female, 66 years old. Routine annual screening examination. PERTINENT HISTORY: Non-contributory. TECHNIQUE: Digital bilateral breast connie (3D mammographic acquisition) in the CC and MLO projections. 2-D mediolateral oblique (MLO) and craniocaudad (CC) views of both breasts were obtained. CAD: Full Field Digital Mammography with Computer Added Detection was performed. COMPARISON: Comparison is made with prior examination dated 03/01/2020 and 09/10/2018. FINDINGS: Breast Composition: There are scattered areas of fibroglandular density. There are no dominant masses or suspicious calcifications. Stable benign-appearing bilateral axillary lymph nodes. No other significant abnormalities are identified. There has been no significant change since the prior study. BI/SCRN MAMM (CAD)W/CONNIE BILAT IMPRESSION: Stable bilateral screening mammogram. Yearly follow-up mammogram recommended. (A) ASSESSMENT CATEGORY: BIRADS Category 2: Benign. A letter regarding these results will be sent to the patient by the facility within 30 days. Approximately 10% of breast cancers are not detected by mammography. A normal mammogram should not delay biopsy of a clinically suspicious abnormality. [id number] Electronically Signed: Oneil Red MD at 14:18 EST ,
== END | disposition home or self-care (01) ==
LOC: OPBI 13:08
PROVIDERS: PCP Family Medicine; Referring Provider Family Medicine; Visit Provider Family Medicine
DX: Z12.31 Encounter for screening mammogram for malignant neoplasm of breast (principal)
CPT/HCPCS: 77063; 77067

== ENCOUNTER → 2022-10-01 | Outpatient (CLI) | payer BC, SELFPAY ==
[2022-10-01 18:33] LABS: AST(SGOT) 16 U/L (15-37); Alanine Aminotransfer ALT/SGPT 32 U/L (13-56); Anion Gap 4 (5-15); BUN 12 mg/dL (7-18); BUN/Creat Ratio 18.7 RATIO (10-20); Calcium,Total 9.3 mg/dL (8.5-10.1); Chloride 106 mmol/L (98-107); Cholesterol 158 mg/dL (200); Creatinine, Serum 0.64 mg/dL (0.55-1.02); EST Glomerular Filtration Rate 97 mL/min (>60); Est Glom Filt Rate - Afr Amer 118 mL/min (>60); Glucose 99 mg/dL (74-106); High Density Lipoprotein 47 mg/dL; Potassium 3.9 mmol/L (3.5-5.1); Sodium Level 138 mmol/L (136-145); Triglycerides 312 mg/dL; Very Low Density Lipoprotein 62 mg/dL (5-40)
== END | disposition home or self-care (01) ==
LOC: MFPLAB 13:51
PROVIDERS: PCP Family Medicine; Visit Provider Family Medicine
DX: E78.5 Hyperlipidemia, unspecified (principal); I10 Essential (primary) hypertension
CPT/HCPCS: 36415; 80048; 80061; 84450; 84460

== ENCOUNTER → 2023-03-28 | Outpatient (CLI) | payer BC, SELFPAY ==
--- NOTE | 2023-03-28 10:02 | BI_ITS ---
MAMMOGRAPHY - BILATERAL SCREENING REASON FOR EXAM: Female, 67 years old. Routine annual screening examination. PERTINENT HISTORY: Non-contributory. TECHNIQUE: Digital bilateral breast connie (3D mammographic acquisition) in the CC and MLO projections. 2-D mediolateral oblique (MLO) and craniocaudad (CC) views of both breasts were obtained. CAD: Full Field Digital Mammography with Computer Added Detection was performed. COMPARISON: Comparison is made with prior study dated March 27, 2022 and March 01, 2020. FINDINGS: Breast Composition: There are scattered areas of fibroglandular density. There are no dominant masses or suspicious calcifications. Stable benign-appearing bilateral axillary lymph nodes. No other significant abnormalities are identified. There has been no significant change since the prior study. BI/SCRN MAMM (CAD)W/CONNIE BILAT IMPRESSION: Stable bilateral screening mammogram. Yearly follow-up mammogram recommended. (A) ASSESSMENT CATEGORY: BIRADS Category 2: Benign. A letter regarding these results will be sent to the patient by the facility within 30 days. Approximately 10% of breast cancers are not detected by mammography. A normal mammogram should not delay biopsy of a clinically suspicious abnormality. [id number] Electronically Signed: Oneil Red MD at 11:08 EST ,
== END | disposition home or self-care (01) ==
LOC: OPBI 09:58
PROVIDERS: PCP Family Medicine; Referring Provider Family Medicine; Visit Provider Family Medicine
DX: Z12.31 Encounter for screening mammogram for malignant neoplasm of breast (principal)
CPT/HCPCS: 77063; 77067

== ENCOUNTER → 2023-09-30 | Outpatient (CLI) | payer BC, SELFPAY ==
[2023-09-30 18:07] LABS: Protein, Urine (Random) 11.9 mg/dL (<11.9); Protein:Creat Ratio 97 mg/g CRE (0-200)
[2023-09-30 18:11] LABS: AST(SGOT) 28 U/L (15-37); Alanine Aminotransfer ALT/SGPT 36 U/L (13-56); Anion Gap 6 (5-15); BUN 13 mg/dL (7-18); Calcium,Total 9.6 mg/dL (8.5-10.1); Chloride 105 mmol/L (98-107); Cholesterol 152 mg/dL (200); Creatinine, Serum 0.72 mg/dL (0.55-1.02); EST Glomerular Filtration Rate 85 mL/min (>60); Est Glom Filt Rate - Afr Amer 103 mL/min (>60); Glucose 92 mg/dL (74-106); High Density Lipoprotein 45 mg/dL; Potassium 4.3 mmol/L (3.5-5.1); Sodium Level 137 mmol/L (136-145); Thyroid Stim Hormone (TSH) 1.28 uIU/mL (0.358-3.74); Triglycerides 235 mg/dL; Very Low Density Lipoprotein 47 mg/dL (5-40)
== END | disposition home or self-care (01) ==
LOC: MFPLAB 14:02
PROVIDERS: PCP Family Medicine; Visit Provider Family Medicine
DX: E78.5 Hyperlipidemia, unspecified (principal); E66.01 Morbid (severe) obesity due to excess calories; I10 Essential (primary) hypertension
CPT/HCPCS: 80048; 80061; 82570; 84156; 84443; 84450; 84460

== ENCOUNTER → 2024-05-05 | Outpatient (CLI) | payer BC, SELFPAY ==
--- NOTE | 2024-05-05 16:00 | BD_ITS ---
PROCEDURE: DEXA BONE DENSITY STUDY REASON FOR EXAM: None provided TECHNIQUE: DEXA scan of the lumbar spine and hip(s). COMPARISON: 03/01/2020 FINDINGS: LUMBAR SPINE: Bone mineral denisty, L3-L4: 1.229 g/cm???,, probably elevated by hypertrophic bony degenerative changes. T-score: 1.2 LEFT FEMORAL NECK: Bone mineral denisty: 0.638 g/cm??? T-score: -1.9 LEFT TOTAL HIP: Bone mineral denisty: 0.978 g/cm??? T-score: 0.3 RIGHT FEMORAL NECK: Bone mineral denisty: 0.767 g/cm??? T-score: -0.7 RIGHT TOTAL HIP: Bone mineral denisty: 0.942 g/cm??? T-score: 0.0 FRAX*: 10 Year Probability of Fracture: Major Osteoporotic Fracture(1): 15.0% Hip Fracture(2): 2.3% *FRAX is a trademark of the [employer]'s [place] for Metabolic Bone Disease, World Health Organization (WHO) Collaborating [place]. 1-Major Osteoporotic Fracture: Clinical Spine, Forearm, Hip or Shoulder. 2-The 10-year probability of fracture may be lower than reported if the patient has received treatment. BD/Dexa Bone Density Study IMPRESSION: 1. Osteopenia. 2. Since 03/01/2020 there has been a decrease of 0.059 g/cm??? (4.6%) in the h[place] mineral density of the lumbar spine. 3. Additional description as above. Reading Location: [id number]
--- NOTE | 2024-05-05 16:00 | BI_ITS ---
PROCEDURE: SCREENING MAMM (CAD), BILAT REASON FOR EXAM: F, Age 69 y/o, presents for annual screening mammogram. No family history of breast cancer. TECHNIQUE: Bilateral screening digital breast tomosynthesis with 2D and 3D images. Computer aided detection. COMPARISON: 03/28/2023, 03/27/2022 FINDINGS: There are scattered areas of fibroglandular density. No suspicious masses, areas of developing architectural distortion, or suspicious calcifications. BI/SCREENING MAMM (CAD), BILAT IMPRESSION: There is no mammographic evidence of malignancy. BI-RADS 1: NEGATIVE. RECOMMEND ANNUAL MAMMOGRAPHIC SCREENING. Follow-up code: Routine Follow-up The patient will be notified of the results by letter. Reading Location: [id number]
== END | disposition home or self-care (01) ==
LOC: OPBD 15:50
PROVIDERS: PCP Family Medicine; Referring Provider Nurse Practitioner Family; Visit Provider Nurse Practitioner Family
DX: Z12.31 Encounter for screening mammogram for malignant neoplasm of breast (principal); Z13.820 Encounter for screening for osteoporosis; M81.0 Age-related osteoporosis without current pathological fracture
CPT/HCPCS: 77067; 77080

== ENCOUNTER → 2024-11-09 | Outpatient (CLI) | payer BC, SELFPAY ==
[2024-11-09 17:38] LABS: Hematocrit 44.6 % (37-47); Hemoglobin 14.8 g/dL (12.0-15.0); Mean Corp Hgb Conc 33.2 g/dL (32-36); Mean Corpuscular Volume 87.6 fL (81-99); Mean Platelet Vol. 10.3 fl (6.2-12.0); Platelet Count 308 K/mm3 (150-450); RBC Distribution Width CV 13.3 % (11.6-14.6); RBC Distribution Width SD 42.8 fl (35.1-43.9); Red Blood Count 5.09 M/mm3 (4.2-5.4); White Blood Count 9.9 K/mm3 (4.4-11.0)
[2024-11-09 18:22] LABS: AST(SGOT) 21 U/L (<=31); Alanine Aminotransfer ALT/SGPT 25 U/L (<=34); Albumin, Serum 4.1 g/dL (3.4-4.8); Alkaline Phosphatase 143 U/L (35-104); Anion Gap 12 (5-15); BUN 17 mg/dL (4-19); BUN/Creat Ratio 25.7 RATIO (10-20); Calcium,Total 9.7 mg/dL (7.6-11.0); Carbon Dioxide 23.5 mmol/L (21.0-32.0); Chloride 105 mmol/L (98-108); Cholesterol 172 mg/dL (<=200); Globulin 2.6 g/dL (2.2-4.2); Glucose 109 mg/dL (70-99); Low Density Lipoprotein Calc. 53 mg/dL; Potassium 4.2 mmol/L (3.3-5.1); Triglycerides 384 mg/dL; Very Low Density Lipoprotein 77 mg/dL (5-40); Vitamin D,25 Hydroxy 41.2 ng/mL (30-100); cholesterol:hdl ratio screen 4.09
== END | disposition home or self-care (01) ==
LOC: MFPLAB 15:34
PROVIDERS: PCP Family Medicine; Visit Provider Family Medicine
DX: Z13.1 Encounter for screening for diabetes mellitus (principal); I10 Essential (primary) hypertension; E78.5 Hyperlipidemia, unspecified
CPT/HCPCS: 36415; 80053; 80061; 82306; 83036; 85027

== ENCOUNTER 2024-11-25 14:48 | Outpatient (RCR) | payer BC, SELFPAY | END 2024-12-25 23:59 | LOC: NS 14:48 | PROVIDERS: PCP Family Medicine; Referring Provider Family Medicine; Visit Provider Family Medicine | DX: Z71.3 Dietary counseling and surveillance (principal); R73.03 Prediabetes | CPT/HCPCS: 97802 ==

== ENCOUNTER 2024-12-29 14:35 | Outpatient (RCR) | payer BC, SELFPAY | END 2025-01-24 23:59 | LOC: NS 14:35 | PROVIDERS: PCP Family Medicine; Referring Provider Family Medicine; Visit Provider Family Medicine | DX: Z71.3 Dietary counseling and surveillance (principal) | CPT/HCPCS: 97803 ==

== ENCOUNTER 2025-02-15 14:48 | Outpatient (RCR) | payer BC, SELFPAY | END 2025-02-24 23:59 | LOC: NS 14:48 | PROVIDERS: PCP Family Medicine; Referring Provider Family Medicine; Visit Provider Family Medicine | DX: Z71.3 Dietary counseling and surveillance (principal) | CPT/HCPCS: 97803 ==